=== PATIENT | female | born 1935 | race Caucasian/White ===

== ENCOUNTER → 2016-06-18 | Outpatient (CLI) | payer MEDICARE, OTHER ==
[~2016-06-18] MED LIST: ASPI-860 PO; CHOL400C8 PO; COCO1000 PO; GARL1000 PO; LSNP20T PO; MIRT15TA98 PO; ROSU5TAB PO; UBID300C PO; VIT1CAPS31 PO
--- NOTE | 2016-06-18 20:11 | Diagnostic Imaging Report ---
US NEEDLE BIOPSY Technique: Ultrasound-guided left breast mass biopsy Indication: Left breast mass. Comparison: Ultrasound of 05/26/2016 Findings: Informed and written consent was obtained from the patient prior to the procedure. The patient was placed on the sonographic table and a preprocedural ultrasound again demonstrated the ill-defined shadowing mass in the left breast at the 1:00 position, approximately 7 cm from the nipple. The skin overlying the left upper outer quadrant was prepped and draped in normal sterile fashion. Skin was anesthetized using 1% lidocaine solution. Using ultrasound guidance, an 18-gauge coaxial Temno biopsy system was utilized and 3 passes were obtained through the mass. However, due to the dense nature of the mass, a larger 14-gauge Achieve biopsy needle system was then used to obtain additional 3 core biopsies. After the final biopsy, a clip was placed immediately adjacent to the shadowing mass. Hemostasis was obtained. Patient was transferred to the mammographic suite and CC and MLO views were obtained for clip placement confirmation. These views demonstrated the biopsy clip to be immediately adjacent to the area of spiculated architectural distortion. Impression: 1. Successful core biopsy of left upper outer quadrant mass. Imaging findings remain highly suspicious for malignancy. If biopsy should return benign, repeat tissue sampling is recommended. Dictated by: Dictated on workstation # [id number]
== END ==
LOC: RAD 11:51
PROVIDERS: ATTEND Surgery
DX: N63 Unspecified lump in breast (principal); Z01.818 Encounter for other preprocedural examination; I34.1 Nonrheumatic mitral (valve) prolapse
CPT/HCPCS: 36415; 85610; 85730; 88305; 88341; 88342; 88360

== ENCOUNTER 2016-06-25 09:10 | Day surgery (SDC) | payer MEDICARE, OTHER ==
[~2016-06-25] VITALS: Ht 160 cm; Wt 65.9 kg
[~2016-06-25 09:10] MED LIST changes: +ACETAMINOPHEN 500 MG TAB (TYLENOL) PO SCH; -ASPI-860 PO; -CHOL400C8 PO; -COCO1000 PO; -GARL1000 PO; +LACTATED RINGERS 1,000 ML IV SCH; -LSNP20T PO; -MIRT15TA98 PO; -ROSU5TAB PO; +SODIUM CHLORIDE FLUSH 3 ML SYR IV PRN; -UBID300C PO; -VIT1CAPS31 PO; +oxyCODONE IMMEDIATE RELEASE 5 MG (OXYIR) TAB PO SCH
[2016-06-25 09:54] VITALS: BP 184/77
[2016-06-25] MEDS ORDERED: METHYLENE BLUE 1% 10 MG/ML 10 ML VIAL ONE (12:34)
[2016-06-25] MEDS ORDERED: LIDOCAINE/EPINEPHRINE 1%-1:100,000 (XYLOCAINE) 20ML VIAL ONE (12:34)
[2016-06-25] MEDS ORDERED: BUPIVACAINE/EPINEPHRINE 0.25%-1:200,000 (MARCAINE) 30 ML VIAL INJ ONE (12:34)
[2016-06-25] MEDS ORDERED: ALFENTANIL 500 MCG/ML (ALFENTA) 5 ML AMP IV ONE (13:00)
[2016-06-25] MEDS ORDERED: MIDAZOLAM 2 MG/2 ML (VERSED) VIAL ONE (13:01)
[2016-06-25] MEDS ORDERED: SUCCINYLCHOLINE 20 MG/ML 10 ML VIAL ONE (13:01)
[2016-06-25] MEDS ORDERED: ePHEDrine SULFATE 50 MG/ML 1 ML AMP ONE (13:22)
[2016-06-25] MEDS ORDERED: diphenhydrAMINE 50 MG/ML INJ (BENADRYL) ONE (13:39)
[2016-06-25] MEDS ORDERED: ONDANSETRON 2 MG/ML (Z0FRAN) 2 ML VIAL ONE (13:39)
[2016-06-25] MEDS ORDERED: KETOROLAC 60 MG/2 ML (TORADOL) VIAL IM ONE (14:54)
[2016-06-25 15:52] VITALS: BP 182/88
[2016-06-25] MEDS ORDERED: ONDANSETRON 2 MG/ML (Z0FRAN) 2 ML VIAL IV PRN (15:58)
[2016-06-25] MEDS ORDERED: HYDROcodone/APAP 5 MG/325 MG (NORCO) TAB PO PRN ×2 (15:58→16:10)
[2016-06-25 16:10] VITALS: BP 169/117
[2016-06-25 16:15] VITALS: BP_SYST 182; BP_DIAS 87; BP_DIAS 88
[2016-06-25 16:30] VITALS: BP 179/130
[2016-06-25 16:56] VITALS: BP 169/83
== END 2016-06-25 17:12 | disposition home or self-care (01) ==
LOC: ASC 09:10 → EDSTATUS 10:30 → ASC 17:12
PROVIDERS: ATTEND Surgery
PROC: 0HRU077 Replacement of Left Breast using Deep Inferior Epigastric Artery Perforator Flap, Open Approach (ICD-10-PCS; principal; 2016-06-25)
DX: C50.412 Malignant neoplasm of upper-outer quadrant of left female breast (principal); Z17.0 Estrogen receptor positive status [ER+]; Z87.891 Personal history of nicotine dependence; Z80.3 Family history of malignant neoplasm of breast
CPT/HCPCS: 19301; 38500; 78195; 88307; 88341; 88342; A9270; J0330; J1200; J1885; J2250; J7120; Q9968; 38792

== ENCOUNTER 2016-07-16 07:00 | Day surgery (SDC) | payer MEDICARE, OTHER ==
[~2016-07-16] VITALS: Ht 160 cm; Wt 67.7 kg
[~2016-07-16 07:00] MED LIST changes: +BUPIVACAINE/EPINEPHRINE 0.25%-1:200,000 (MARCAINE) 30 ML VIAL INJ ONE; +LIDOCAINE/EPINEPHRINE 1% 1:100,000 (XYLOCAINE) 30 ML VIAL INJ ONE
[2016-07-16 07:14] VITALS: BP 134/69
[2016-07-16] MEDS ORDERED: MIDAZOLAM 2 MG/2 ML (VERSED) VIAL ONE (08:03)
[2016-07-16] MEDS ORDERED: ALFENTANIL 500 MCG/ML (ALFENTA) 5 ML AMP IV ONE (08:03)
[2016-07-16] MEDS ORDERED: PROPOFOL 20 ML IV ONE (08:04)
[2016-07-16] MEDS ORDERED: ePHEDrine SULFATE 50 MG/ML 1 ML AMP ONE (08:34)
[2016-07-16] MEDS ORDERED: ONDANSETRON 2 MG/ML (Z0FRAN) 2 ML VIAL ONE (08:41)
[2016-07-16] MEDS ORDERED: diphenhydrAMINE 50 MG/ML INJ (BENADRYL) ONE (08:42)
[2016-07-16] MEDS ORDERED: KETOROLAC 60 MG/2 ML (TORADOL) VIAL IM ONE (09:14)
[2016-07-16 10:06] VITALS: BP 159/82
[2016-07-16 10:42] VITALS: BP 165/72
== END 2016-07-16 11:04 | disposition home or self-care (01) ==
LOC: ASC 07:00
PROVIDERS: ATTEND Surgery
DX: C50.412 Malignant neoplasm of upper-outer quadrant of left female breast (principal); I10 Essential (primary) hypertension; M81.0 Age-related osteoporosis without current pathological fracture; E78.00 Pure hypercholesterolemia, unspecified; L90.5 Scar conditions and fibrosis of skin
CPT/HCPCS: 11602; 12031; 88307; A9270; J1200; J1885; J2250; J2405; J7120